=== PATIENT | male | born 1965 | race Hispanic/Latino ===

== ENCOUNTER 2016-06-04 15:21 | Emergency (ER) | payer OTHER ==
[~2016-06-04] VITALS: Ht 167.6 cm; Wt 88.6 kg
[2016-06-04 15:40] VITALS: BP 125/58; PULSE 78; RESP 16; O2SAT 95
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
[2016-06-04 18:34] LABS: BASOPHILS % (AUTO) 0.2 % (0-3); EOSINOPHILS % (AUTO) 7.9 % (0-5); MONOCYTES % (AUTO) 22.2 % (4-12); Mean Corpuscular Volume 85.7 fL (81-100); Platelet Count 204 bil/L (150-400)
[2016-06-04 19:16] VITALS: BP 111/61; PULSE 66; RESP 20; O2SAT 95
--- NOTE | 2016-06-04 19:36 | DRSVH ---
PROCEDURE: CT BRAIN WITHOUT CONTRAST ([id number]) INDICATIONS: altered mental status TECHNIQUE: Noncontrast 4.5 mm thick angled axial sections acquired from the foramen magnum to the vertex, with c oronal reformats. COMPARISON: None. FINDINGS: Image quality: Excellent. CSF spaces: Basal cisterns are patent. No extra-axial fluid collections. Ventricles are normal in size and shape. Brain: No midline shift. No intracranial masses or hemorrhage. Acosta-white matter interface is norm al. Skull and face: Calvarium and visualized facial bones are intact, without suspicious lesions. Sinuses: Visualized sinuses and mastoids are clear. IMPRESSION: No acute intracranial abnormality. Cause of altered mental status is not identified. Dictated by: Uziel Orellana M.D. on 06/04/2016 at 19:34 Approved by: Uziel Orellana M.D. on 06/04/2016 at 19:35
[2016-06-05] MEDS ORDERED: LORazepam 2 mg Tablet PO ONE (03:50)
--- NOTE | 2016-06-05 06:21 | PCM.EDPN ---
ED Note Date of Service Jun 05, 2016 This young man is standing in his seclusion room gesticulating to the air and speaking to himself. He is in no apparent distress and is clearly ambulatory without difficulty. Because of behaviors earlier this evening, he remains in seclusion and will remain so until his expected departure in approximately 2 or 3 hours. He is detained to [facility] [place] to which she will be conducted by BLS ambulance. Everardo Reyes MD Jun 05, 2016 06:21
[2016-06-05 13:14] VITALS: BP 98/57; PULSE 81; RESP 20; O2SAT 96
== END 2016-06-05 14:13 | disposition home or self-care (01) ==
LOC: SED 15:21
DX: R44.0 Auditory hallucinations (principal); F22 Delusional disorders; F15.20 Other stimulant dependence, uncomplicated; Z87.891 Personal history of nicotine dependence